=== PATIENT | female | born 1935 | race Caucasian/White ===

== ENCOUNTER 2018-09-25 17:04 | Inpatient (IN) | payer OTHER ==
[~2018-09-25] VITALS: Ht 172.7 cm; Wt 101.0 kg
[2018-09-25 17:28] LABS: BASOPHIL % 0.6 % (0-2); PLATELET COUNT 182 x10^3mcL (130-400)
[2018-09-25 17:29] LABS: RED CELL DISTRIBUTION WIDTH 16.7 % (11.5-14.5)
[2018-09-25 17:37] LABS: CALCIUM 8.8 mg/dL (8.5-10.1); CARBON DIOXIDE 29.3 mmol/L (21-32); CHLORIDE SERUM 104 mmol/L (98-107); CREATININE SERUM 2.7 mg/dL (0.6-1.0); GLUCOSE SERUM 102 mg/dL (74-106); POTASSIUM SERUM 3.4 mmol/L (3.5-5.1); SODIUM SERUM 141 mmol/L (136-145)
--- NOTE | 2018-09-25 17:38 | NUR ---
PT BIBA FROM [facility] ASSISTED LIVING FOR A SYNCOPAL EPISODE WITH POSS SEIZURE LIKE ACTIVITY 30MIN TOWN ADMINISTRATOR. PER ENGINE LATHE SET UP OPERATOR TOOL REPORT, PT HAD A FALL LAST WEEK WITH NO LOC. PT AWAKE, ALERT TO NAME, PLACE, AND OCCURENCE, BUT DISORIENTED TO DATE AND TIME. RESP EVEN AND UNLABORED, ON RA @ 99%, DENIES ANY SOBOR CP. LS-CLEAR BILATERALLY, DENIES ANY RECENT COUGH/COLD LIKE SYMPTOMS. DENIES ANY FEVERS/CHILLS. LS-DIMISHED AT BASES. ABD ROUND/LARGE NON DISTENDED, NT TO PALPATION, DENIES ANY N/V/D, HOWEVER INCONTINENT. PT ON MONITOR-AFIB, DENIES CP. SKIN W/D/I. NO PEDAL EDEMA NOTED, PEDAL PULSES PRESENT. BRUSING NOTED TOLEFT EYE S/P FALL LAST WEEK. PT CURRENTLY DENIES ANY PAIN, JUST DISCOMFORT FROM ER BED MATTRESS. SAFETY PRECAUTIONS IN PLACE, BED CLOSE TO NURSING STATION, CALL LIGHT WITHIN REACH. WAIITNG FOR FAMILY WHO PARAMEDICS STATED THEY WERE ON THEIR WAY. WAITING FOR ER MD CORTEZ.
[2018-09-25 17:41] LABS: ALKALINE PHOSPHATASE 92 U/L (46-116); ALT/SGPT 21 U/L (14-59); AST/SGOT 21 U/L (15-37); BILIRUBIN TOTAL 0.5 mg/dL (0.20-1.00)
[2018-09-25 17:42] LABS: TOTAL PROTEIN, SERUM 6.1 g/dL (6.4-8.2)
--- NOTE | 2018-09-25 18:26 | NUR ---
FAMILY AT BEDSIDE, WAITING FOR MSE.
--- NOTE | 2018-09-25 18:33 | NUR ---
DR IRVING IN ROOM FOR EXAM.
[2018-09-25] MEDS ORDERED: RANEXA1000 M2 PO (19:36)
[2018-09-25 20:09] LABS: microscopic required? NO
--- NOTE | 2018-09-25 20:18 | NUR ---
PER DR ARISTIDES MOODY TO SEND PATIENT UP.
[2018-09-25 20:32] LABS: urine erythrocyte NEGATIVE (NEGATIVE)
--- NOTE | 2018-09-25 20:35 | NUR ---
RECEIVED PT FROM ED [facility]IA [employer] CAME IN DUE TO FALL AND POSS. SEIZURE PER PT'S DAUGHTER. AAOX3 (PERSON, PLACE, BIRTHDATE, AND YEAR ONLY). ABLE TO FOLLOW COMMANDS. DENIES HEADACHE/DIZZINESS. NO SOB NOTED, LUNG SOUNDS CTA. DENIES CHEST PAIN/PRESSURE, AFIB W/ BBB, HR AT 106. DENIES ABDOMINAL DISCOMFORT. URINE INCONTINENT. W/ ECCHYMOSIS ON THE LEFT EYE AND LUE. W/ ERYTHEMA ON THE LEFT GROIN AND BLANCHABLE ERYTHEMA ON THE BUTTOCKS. PADDED SIDE RAILS UPX2. CALL LIGHT ON REACH. FAMILY AT BEDSIDE. PRIMARY NURSE GENO AT BEDSIDE FOR CONTINUITY OF CARE
[2018-09-25] MEDS ORDERED: ALLOPURINOL100 MG PO (20:53)
[2018-09-25] MEDS ORDERED: ROCALTROL0.25 MCG PO (20:54)
[2018-09-25 20:55] VITALS: BP 141/70
[2018-09-25] MEDS ORDERED: FLUTICASON0.05 MG/Ac (20:55)
[2018-09-25] MEDS ORDERED: LASIX40 MG PO (20:55)
[2018-09-25] MEDS ORDERED: NEU300 PO (20:56)
[2018-09-25] MEDS ORDERED: GABAPENTIN100 M2 PO (20:56)
[2018-09-25] MEDS ORDERED: ISOSORBIDE DINI30 M2 PO (20:57)
[2018-09-25] MEDS ORDERED: KETOCONAZOLE2% TOP (20:58)
[2018-09-25] MEDS ORDERED: SYNTHROID0.112 MG PO (20:58)
[2018-09-25] MEDS ORDERED: METOPROLOL TART25 M1 PO (20:58)
[2018-09-25] MEDS ORDERED: PROTONIX40 MG PO (20:59)
[2018-09-25] MEDS ORDERED: XANAX0.25 MG PO (20:59)
[2018-09-25] MEDS ORDERED: INDOMETHACIN50 MG PO (21:01)
[2018-09-25 21:31] VITALS: Ht 172.7 cm; Wt 101.0 kg
--- NOTE | 2018-09-25 22:02 | NUR ---
INITIATED TELE NEURO CONSULT, SPOKE WITH AE, ALL INFO FAXED PER REQUESTED.
--- NOTE | 2018-09-25 23:01 | NUR ---
TELE NEURO CONSULT DONE, EEG AND TIA WORK UP WAS RECOMMENDED BY TELE NEURO MD, UPDATES GIVEN TO DR JOY.
--- NOTE | 2018-09-26 05:18 | NUR ---
PT ASLEEP BUT EASILY AROUSABLE, SLEPT ON AND OFF WHOLE NIGHT, ON TELE#2 A-FIB WITH BBB, BED ALARM ON, ABLE TO REPOSITION HERSELF IN BED, CONDITION NO CHANGE, NO DISTRESS NOTED, WILL KEEP TO MONITOR.
[2018-09-26 06:11] VITALS: BP 151/63
[2018-09-26 06:23] LABS: BASOPHIL % 0.7 % (0-2); PLATELET COUNT 171 x10^3mcL (130-400)
[2018-09-26 06:39] LABS: CALCIUM 9.3 mg/dL (8.5-10.1); CARBON DIOXIDE 25.3 mmol/L (21-32); CHLORIDE SERUM 104 mmol/L (98-107); CREATININE SERUM 2.4 mg/dL (0.6-1.0); GLUCOSE SERUM 89 mg/dL (74-106); SODIUM SERUM 142 mmol/L (136-145)
[2018-09-26 07:03] LABS: RED CELL DISTRIBUTION WIDTH 16.8 % (11.5-14.5)
--- NOTE | 2018-09-26 07:20 | NUR ---
RECIEVED PT RESTING IN BED WITH NO C/O PAIN, DISTRESS, OR SOB. A/O X2. TELE #2 CONNECTED TO PT. IV TO LEFT HAND RUNNING NS AT 70ML/HR, INTACT AND PATENT WITH NO REDNESS. SAFETY PRECAUTIONS IN PLACE, CALL LIGHT WITHIN REACH, WILL MONITOR.
[2018-09-26 09:11] VITALS: BP 139/55
--- NOTE | 2018-09-26 09:26 | NUR ---
NOTIFIED DR VARELA THAT PT POTASSIUM IS AT 3.0 AND CARDIAC RHYTHM IS AFIB WITH BBB. NO NEW ORDERS AT THIS TIME, WILL F/U.
--- NOTE | 2018-09-26 09:52 | NUR ---
NEW ORDER FOR POTASSIUM 40MEQ PO RECIEVED AND CARRIED OUT.
--- NOTE | 2018-09-26 10:45 | NUR ---
SPOKE WITH PT DAUGHTER AND EXPLAINED PT POC PER DR RIVAS REQUEST (EKG AND CONSULT WITH DR MARTIN PENDING). DAUGHTER VERBALIZES UNDERSTANDING. ALL CONCERNS ADDRESSED.
--- NOTE | 2018-09-26 10:49 | NUR ---
DR RIVAS AND DR VARELA AT BEDSIDE WITH PT DISCUSSING POC, NEW ORDER FOR 12 LEAD PENDING. WILL CONTINUE TO MONITOR.
--- NOTE | 2018-09-26 11:48 | NUR ---
DR VARELA NOTIFIED THAT PT HR RAISES TO 180'S UPON AMBULATION AND BACK DOWN TO 70' S UPON REST. NO NEW ORDERS AT THIS TIME. NO DISTRESS NOTED AND PT DENIES CP OR PRESSURE. WILL CONTINUE TO MONITOR.
[2018-09-26 12:35] VITALS: BP 123/93
--- NOTE | 2018-09-26 12:38 | NUR ---
PT C/O DIZZINESS AND TINITUS UPON STANDING, CHECKED BP IN SITTING POSITION AT 123/93, HR 91 AND STANDING WAS 64/39, [address] VARELA NOTIFIED, ORTHOSTATIC PRECAUTIONS IN PLACE.
--- NOTE | 2018-09-26 14:54 | NUR ---
ECHOCARDIOGRAM PENDING-PATIENT WITH NURSE
--- NOTE | 2018-09-26 15:19 | NUR ---
PT RESTING IN BED, REPORTS NO CP, PRESSURE, OR SOB. ECHO CARDIOGRAM RESULT PENDING. WILL MONITOR.
[2018-09-26 17:35] VITALS: BP 120/59
--- NOTE | 2018-09-26 18:12 | NUR ---
PT STABLE AT THIS TIME, RESTING IN BED WITH NO C/O OF PAIN, DISTRESS, OR SOB. A/O X2. DAUGHTER AT BEDSIDE. TELE #2 CONNECTED TO PT. DENIES CP OR PRESSURE. TOLERATED ALL CARES WELL. VS WNL. IV SITE INTACT AND PATENT WITH NO REDNESS OR INFLAMMATION. NS RUNNING AT 70ML/HR. BED IN LOW POSITION, BED ALARM ON, ALL SAFETY PRECAUTIONS IN PLACE, CALL LIGHT WITHIN REACH, WILL ENDORSE CARE TO NIGHT NURSE.
--- NOTE | 2018-09-26 19:40 | NUR ---
RECEIVED PT FROM DAY SHIFT RN. PT IS ALERT AND ORIENTED TO PERSON AND PLACE BUT IS NOT ABLE TO RESPOND TO QUESTIONS OF SITUATION AND TIME. PT STILL FOLLOWS SIMPLE COMMANDS. FAMILY AT THE BEDSIDE AT THIS TIME. PT HAS NO SIGNS OR SYMPTOMS OF CHEST PAIN OR SHORTNESS OF BREATH ON ROOM AIR. CHEST RISE AND FALL IS SYMMETRIC. PT DENIES DIZZINESS. PT CURRENTLY USING BEDSIDE COMMODE BUT ENCOURAGED PT TO CALL WHEN AMBULATING IN ORDER TO REDUCE THE RISK OF FALLS TELE #[address] ECCHYMOSIS NOTED TO THE LEFT UPPER AND LEFT EYE. PT DENIES PAIN AT THIS TIME. LEFT HAND IV CLEAN DRY AND INTACT SALINE LOCKED AT THIS TIME. SAFETY MEASURES ARE IN PLACE. BED IN THE LOWEST POSITION. CALL LIGHT IS WITHIN REACH. WILL CONTINUE TO MONITOR PT.
[2018-09-26 20:43] VITALS: BP 144/58
[2018-09-27 05:22] VITALS: BP 140/57
[2018-09-27 06:25] LABS: BASOPHIL % 0.6 % (0-2); PLATELET COUNT 181 x10^3mcL (130-400)
[2018-09-27 06:35] LABS: RED CELL DISTRIBUTION WIDTH 16.7 % (11.5-14.5)
[2018-09-27 06:46] LABS: CALCIUM 9.5 mg/dL (8.5-10.1); CARBON DIOXIDE 25.8 mmol/L (21-32); CHLORIDE SERUM 105 mmol/L (98-107); CREATININE SERUM 2.4 mg/dL (0.6-1.0); GLUCOSE SERUM 103 mg/dL (74-106); MAGNESIUM 1.9 mg/dL (1.8-2.4); PHOSPHOROUS 2.8 mg/dL (2.5-4.9); POTASSIUM SERUM 3.5 mmol/L (3.5-5.1); SODIUM SERUM 143 mmol/L (136-145)
--- NOTE | 2018-09-27 08:00 | NUR ---
SHIFT ASSESSMENT DONE. PATIENT ALERT AND FORGETFULNESS. TELE#2; A FIB W/ BBB; HR = 80'S TO 170'S. NO S/S OF CHEST PAIN. NO RESP DISTRESS ON RA. AMBULATORY. BUT FELL AT HOME. LT ORBITAL BRUISE. TELE#2, A FIB; HR IRREGULAR, FROM 70'S TO 170'S. DENIED CHEST PAIN. NO RESP DISTRESS ON RA. PATIENT AMBULATORY W/ UNSTEADY GAIT. HIGH RISK OF FALL. PATIENT FELL AT HOME LAST MONDAY. IVHL'D TO L HAND. TRACE EDEMA TO BLE. DENIED PAIN. CALL LIGHT IN REACH.
[2018-09-27 09:21] VITALS: BP 131/56
[2018-09-27 12:50] VITALS: BP 110/53
--- NOTE | 2018-09-27 15:00 | NUR ---
SPECIALISTS STEAMFITTER APPRENTICE FOR TELE NEURO CONSULTATION PER ORDER. MASSAGE SENT. TELE MACHINE WAS IN ROOM.
[2018-09-27 17:30] VITALS: BP 124/52
--- NOTE | 2018-09-27 19:00 | NUR ---
NO SEIZURE ACTIVITY THIS SHIFT. PRECAUTION IN PLACE. DR. MARTIN SAW PATIENT. ENDROSED CARE TO [facility] NURSE.
--- NOTE | 2018-09-27 19:51 | NUR ---
SHIFT REASSESSMENT DONE.PATIENT ALERT AND ORIENTED X 2.FORGETFUL,BREATHING EASY.GEN WEAKNESS.HEPLOCK L HAND.TELE 2 AFIB..REDNESS SACRAL AREA NOTED.VOIDING.CALL LIGHT IN RAECH.BED ALARM ON,TRIES TO GET UP,FALL PRECAUTION.
--- NOTE | 2018-09-27 20:32 | NUR ---
PATIENT SITTING UP IN CHAIR,PUT TO RESTROOM,ASSISTED,VOIDING.NOT WEARING HOSPITAL GOWN,USING HER OWN HOME GOWN,NO POCKET FOR TELE BOX.TELE 2 AFIB.CALL LIGHT IN RAECH.
--- NOTE | 2018-09-27 21:19 | NUR ---
ALL PM MEDS GIVEN,SWALLOWS WELL.HTN DX,MED GIVEN.CALL LIGHT IN REACH.
[2018-09-27 21:40] VITALS: BP 162/66
--- NOTE | 2018-09-27 23:32 | NUR ---
PATIENT KEEP ON REMOVING TELE PATCH,REMAINS FORGETFUL,HAS TO REORIENT.
--- NOTE | 2018-09-28 00:55 | NUR ---
TELE,/NEURO CONSULT THIS AM.
--- NOTE | 2018-09-28 04:10 | NUR ---
PATIET SLEEPING COMFORTABLY,HAD NORCO LAST NIGHT AND MADE HER SLEEP,BUT ONCE SHE WAKES UP,FORGETFUL,REALITY AWARENESS GIVEN.BRUISE ON L EYE NOTED ON ADMIT FROM fall.
--- NOTE | 2018-09-28 04:11 | NUR ---
NO SZ ACTIVITY NOTED SO FAR.
[2018-09-28 05:30] VITALS: BP 139/51
--- NOTE | 2018-09-28 06:08 | NUR ---
TELE INTACT AT THIS TIME,PUT A HOSPITAL GOWN FOR TELE POCKET BUT REMOVED IT AGAIN,VIDHI ALSO FOUND AT BEDSIDE TABLE,REMINDED I WILL PUT A NEW ONE,BUT DECLINE.
[2018-09-28 06:18] LABS: BASOPHIL % 0.5 % (0-2); PLATELET COUNT 185 x10^3mcL (130-400)
[2018-09-28 06:42] LABS: RED CELL DISTRIBUTION WIDTH 16.4 % (11.5-14.5)
--- NOTE | 2018-09-28 06:48 | NUR ---
NEW IV SITE R HAND 22 GUAGE,REMINDED NOT TO PULL IT.WILL ENDORSE TO NEXT SHIFT.
--- NOTE | 2018-09-28 06:56 | NUR ---
PATIENT SITTING UP IN THE CHAIR.REMAINS PLEASANTLY CONFUSED.WILL ENDORSE.SCHEDULE FOR NEURO/TELE CONSULT AT BEDSIDE.MACHINE IN THE ROOM.
[2018-09-28 07:24] LABS: CALCIUM 9.5 mg/dL (8.5-10.1); CARBON DIOXIDE 25.3 mmol/L (21-32); CHLORIDE SERUM 106 mmol/L (98-107); GLUCOSE SERUM 85 mg/dL (74-106); MAGNESIUM 1.9 mg/dL (1.8-2.4); PHOSPHOROUS 2.7 mg/dL (2.5-4.9); POTASSIUM SERUM 3.7 mmol/L (3.5-5.1); SODIUM SERUM 142 mmol/L (136-145)
--- NOTE | 2018-09-28 07:25 | NUR ---
RECEIVED PT FROM IMPLEMENT MECHANIC. PT AWAKE, ALERT. PT FORGETFUL AND CONFUSED. PT ON SEIZURE PRECAUTIONS. DENIES HEADACHE AT THIS TIME. PT ON ROOM AIR WITH NO RESP DISTRESS NOTED. PT ON TELE 2, DENIES CHEST PAIN. IV ACCESS RH 22G C/D/I SALINE LOCKED. PERIPHERAL PULSES PALPABLE, NO EDEMA NOTED. ACTIVE BS NOTED. NO APPARENT ISSUES WITH ELIMINATION AT THIS TIME. PT WITH GENERALIZED WEAKNESS. SAFETY MEASURES IN PLACE, BED LOW AND LOCKED. CALL LIGHT WITHIN REACH.
[2018-09-28 08:28] VITALS: BP 137/62
--- NOTE | 2018-09-28 09:45 | NUR ---
DUE MEDS ADMINISTERED, PT TOLERATED WELL. PT DENIES ANY PAIN OR DISCOMFORT AT THIS TIME.
--- NOTE | 2018-09-28 10:30 | NUR ---
PT TO HAVE TELE NEURO CONSULT. PAPERWORK TO BE FAXED TO [facility]. PER ATTENDING, AFTER CONSULT, PT MAY BE DISCHARGED.
--- NOTE | 2018-09-28 13:05 | NUR ---
KATRINA BROWER CALL INFORM PT'S DTR ERICK WILL BE HERE TO BONDING MACHINE SETTER PATIENT AND TRANSFER PATIENT TO [facility]. DR. VARELA WAS PAGE FOR DISCHARGE ORDER. GIL BOLAND WAS INFORM.
[2018-09-28 13:16] VITALS: BP 141/61
--- NOTE | 2018-09-28 13:18 | NUR ---
SPOKE WITH [facility] CONSULT TO INFORM PT FAMILY IS REFUSING CONSULT AT THIS TIME. PT FAMILY WANTS PT TO BE DISCHARGED TO [facility] WITHOUT CONSULT. WILL INFORM
[2018-09-28 13:34] VITALS: BP 141/61
--- NOTE | 2018-09-28 14:00 | NUR ---
DISCHARGE INSTRUCTIONS/EDUCATION PROVIDED TO FAMILY AND PATIENT. VERBALIZED UNDERSTANDING. IV ACCESS REMOVED WITH CATHETER INTACT. NO REDNESS/BLEEDING NOTED. FAMILY TO FOLLOW UP WITH PCP. PT TAKEN TO [employer] [employer] BY WHEELCHAIR FOR TRANSFER TO [facility].
--- NOTE | 2018-09-28 16:02 | NUR ---
PHYSICAL THERAPY DAILY NOTES CO-SIGN All documentation done by the [employer] for 09/28/18 has been reviewed. I agree with the documentation. Reviewed/Co-Signed by: Rachel Howell PT Documentation Done by:JÚNIOR HENDERSON PTA
== END 2018-09-28 14:00 | disposition home health service (06) | DRG 100 ==
LOC: ED 17:04 → DU 19:16 → EDBD 19:16 → DU 20:35
PROVIDERS: Student in an Organized Health Care Education/Training Program; ADMIT Internal Medicine
DX: G40.89 Other seizures (principal); N17.0 Acute kidney failure with tubular necrosis; I50.21 Acute systolic (congestive) heart failure; B69.0 Cysticercosis of central nervous system; G91.8 Other hydrocephalus; I13.0 Hypertensive heart and chronic kidney disease with heart failure and stage 1 through stage 4 chronic kidney disease, or unspecified chronic kidney disease; E44.0 Moderate protein-calorie malnutrition; G90.9 Disorder of the autonomic nervous system, unspecified; R55 Syncope and collapse; T46.995A Adverse effect of other agents primarily affecting the cardiovascular system, initial encounter; S05.12XA Contusion of eyeball and orbital tissues, left eye, initial encounter; I48.91 Unspecified atrial fibrillation; E87.6 Hypokalemia; I45.81 Long QT syndrome; I25.10 Atherosclerotic heart disease of native coronary artery without angina pectoris; N18.9 Chronic kidney disease, unspecified; D64.9 Anemia, unspecified; E03.9 Hypothyroidism, unspecified; E78.5 Hyperlipidemia, unspecified; Z68.34 Body mass index [BMI] 34.0-34.9, adult; Z95.1 Presence of aortocoronary bypass graft; Z90.5 Acquired absence of kidney; Z66 Do not resuscitate; Z91.81 History of falling; W18.39XA Other fall on same level, initial encounter; Y92.099 Unspecified place in other non-institutional residence as the place of occurrence of the external cause
CPT/HCPCS: 97116-GP; 97530-GP; G0378; J7030; Q0092